=== PATIENT | male | born 1985 | race Caucasian/White ===

== ENCOUNTER 2019-11-11 19:22 | Emergency (ER) | payer BC ==
[~2019-11-11] VITALS: Ht 185.4 cm; Wt 86.6 kg
--- NOTE | 2019-11-11 20:30 | NUR ---
MARLON AT BEDSIDE FOR MSE.
[2019-11-11 20:59] VITALS: BP 115/85
--- NOTE | 2019-11-11 20:59 | NUR ---
Patient discharged to home in stable conditon. Written and verbal after care instructions given. Patient verbalizes understanding of instructions.V/S WNL NO SOB.WENT HOME WITH AMBULATORY AND WITH PRESCRIPTION. Addendum: 11/12/19 at 0250 by BECKIE WENT HOME WITH .
== END 2019-11-11 20:59 | disposition home or self-care (01) ==
LOC: ER 19:25
DX: B34.9 Viral infection, unspecified (principal)
CPT/HCPCS: A4663